=== PATIENT | female | born 1985 | race Caucasian/White ===

== ENCOUNTER 2023-08-07 09:31 | Emergency (ER) | payer BC, SELFPAY ==
[2023-08-07 09:41] VITALS: BP 195/124; PULSE 76; O2SAT 96
[2023-08-07 09:43] VITALS: BP 180/113; PULSE 76; O2SAT 96
[2023-08-07 09:44] VITALS: BP 180/113; PULSE 78; RESP 16; TEMP 36.9; O2SAT 98; BMI 34.3
--- NOTE | 2023-08-07 09:48 | [facility].EDGENADL ---
Discharge Plan Disposition Patient Disposition: Home, Self-Care Prescriptions Prescriptions: New penicillin V potassium 500 mg tablet 500 mg PO BID 10 Days Qty: 20 0RF No Action lisinopril-hydrochlorothiazide 20-12.5 tablet 1 tab PO DAILY cephalexin 500 MG capsule 500 mg PO QID 7 Days 0RF Referrals Follow up/Referrals: Irma Szymanski [Primary Care Provider] - See instructions Activity Restrictions/Add. Instructions Additional Instructions/Restrictions: Call your family doctor to establish care for this visit to the emergency department and schedule follow-up within 48 hours to ensure improvement. If you have any worsening of your condition or any other concerning signs or symptoms, return to the emergency department or your primary care doctor for further evaluation. Penicillin twice daily for 10 days Clinical Impressions Clinical Impression: Acute streptococcal pharyngitis Discharge ED Provider: Francisco Obregon General Adult HPI General Chief complaint: Fever Stated complaint: fever 101, sore throat, pain in both ears Time Seen by Provider: 08/07/23 09:35 Mode of Arrival: Ambulatory Source of Information: Patient Limitations: No Limitations Description of Symptoms (Recalled from ER Triage Doc. by RN): 37 yo F presents to ED with c/o fever for 2 days. yesterday she began to have sore throat, and bilateral ear pain. pt has been taking tylenol and ibuprofen. History of Present Illness HPI narrative: 37-year-old female history of strep throat in the past presenting with fevers, body aches, sore throat. Patient states she started having low-grade fevers of 99 about 2 days prior to arrival. She started having bodyaches, sore throat and pain with swallowing since that time. No voice changes, difficulty or pain with range of motion of neck. Patient still able to tolerate p.o. intake. She states that her son has strep throat and this feels similar to strep throat felt a couple years ago when she had it. Denies cough, nausea or vomiting, abdominal pain, or any other complaints at this time. Been tolerating Tylenol and Motrin, which has helped significantly with symptoms. Related Data Home Medications Medication Instructions Recorded Confirmed lisinopril 20 1 tab PO DAILY HTN 03/03/19 08/15/19 mg-hydrochlorothiazide 12.5 mg tablet Previous Rx's Medication Instructions Recorded cephalexin 500 mg capsule 500 mg PO QID 7 days 12/02/19 penicillin V potassium 500 mg 500 mg PO BID 10 days #20 tabs 08/07/23 tablet Allergies Allergy/AdvReac Type Severity Reaction Status Date / Time acetaminophen [From Percocet] Allergy Verified 08/15/19 08:08 oxycodone [From Percocet] Allergy Verified 08/15/19 08:08 Oxycodone Allergy Intermediate I-ITCHING Uncoded 03/04/19 08:34 [facility] Disclaimer: The information contained in this section may have been updated after the patient was seen, as this information can be updated by other users. Social History (System 03/04/19 @ 08:34 by Ann Cardenas) Smoking Status: Current every day smoker tobacco type: e-cigarettes alcohol intake: never current occupational status: employed Travel in the last 8 weeks: None ROS Obtained: Yes All systems reviewed & no additional complaints except as documented Physical Exam General General appearance: alert and in no apparent distress Head Head exam: atraumatic and normocephalic Eye Eye exam: Present normal appearance, PERRL and EOMI ENT ENT exam: Present mucous membranes moist and other (Tonsillitis without obvious exudate. Pharyngeal erythema.) Neck Neck exam: Present normal inspection, full ROM and trachea midline; Absent lymphadenopathy Respiratory Respiratory exam: Absent respiratory distress, wheezes, stridor, accessory muscle use or prolonged expiratory phase Cardiovascular Cardiovascular exam: Present normal rhythm Abdominal Exam Abdominal exam: Present soft; Absent distention, tender
[2023-08-07 10:00] VITALS: BP 174/115; PULSE 85; O2SAT 100
[2023-08-07 10:02] LABS: Strep Scrn Group A (Rapid) Negative (Negative)
[2023-08-07 10:39] VITALS: BP 174/115; PULSE 85; RESP 16; TEMP 36.9
== END 2023-08-07 10:40 | disposition home or self-care (01) ==
PROVIDERS: Emergency Provider Emergency Medicine; PCP Family Medicine Sports Medicine
DX: J02.0 Streptococcal pharyngitis (principal); R07.0 Pain in throat; R50.9 Fever, unspecified; H92.03 Otalgia, bilateral; F17.290 Nicotine dependence, other tobacco product, uncomplicated
CPT/HCPCS: 87430; 99283